=== PATIENT | female | born 1960 | race Two or more races ===

== ENCOUNTER 2017-07-11 23:19 | Inpatient (IN) | payer OTHER ==
[~2017-07-11] VITALS: Ht 172.7 cm; Wt 68.6 kg
[2017-07-12 03:27] LABS: Urine Bilirubin Negative (Negative); Urine Blood Negative /uL (Negative); Urine Color Yellow (Yellow); Urine Glucose Normal (Normal); Urine Ketone Negative (Negative); Urine Mucus FEW (None Seen); Urine Nitrite Negative (Negative); Urine RBC 2 /hpf (0 - 4); Urine Squamous Epithelial Cell FEW /hpf (<5); Urine Urobilinogen Normal (Negative); Urine pH 5.5 (5.0-8.0)
[2017-07-12 03:28] LABS: Basophils # (auto) 0.1 uL; Basophils % (auto) 0.9 % (0.0-2.0); Eosinophils # (auto) 0.1 uL; Eosinophils % (auto) 0.9 % (0.0-7.0); Hematocrit 29.5 % (36.0-46.0); Hemoglobin 9.7 g/dL (12.2-16.2); Lymphocytes # (auto) 1.2 uL; Lymphocytes % (auto) 15.3 % (10.0-50.0); Mean Corpuscular Hemoglobin 31.1 pg (28.0-32.0); Mean Corpuscular Volume 94.3 fL (80.0-100.0); Mean Platelet Volume 6.6 fL (6.9-10.8); Monocytes # (auto) 0.8 uL; Monocytes % (auto) 10.4 % (0.0-12.0); Neutrophils # (auto) 5.8 uL; Neutrophils % (auto) 72.5 % (37.0-80.0); Platelet Count (auto) 161 10^3/uL (140-450)
[2017-07-12 03:40] LABS: Albumin 2.4 g/dL (3.4-5.0); BUN/Creatinine Ratio 10.3; Bilirubin, Total 4.2 mg/dL (0.2-1.0); Calcium 8.2 mg/dL (8.5-10.1); Total Protein 8.4 g/dL (6.4-8.2)
[2017-07-12 04:34] LABS: INR 1.23 (0.9-1.15); Partial Thromboplastin Time 30.5 sec (22.64-33.71); Prothrombin Time 13.4 sec (9.37-12.3)
[2017-07-12 04:56] LABS: Anisocytosis Slight; Hypersegmented Neutrophils Present; Platelet Estimate Adequate
[2017-07-12] MEDS ORDERED: LORazepam 0.5 MG TAB PO PRN (05:45)
[2017-07-12] MEDS ORDERED: LACTULOSE 20Gm/30ML SOLN PO ONE (05:45)
[2017-07-12] MEDS ORDERED: cefTRIAXone 1GM/50ML D5W 50 ML IV ONE (06:30)
[2017-07-12] MEDS: SPIRONOLACTONE 25 MG TAB PO SCH ×2 (06:40→18:23)
[2017-07-12] MEDS: ONDANSETRON HCL 4 MG/2 ML VIAL IV PRN (08:05)
[2017-07-12 08:48] VITALS: BP 100/51
[2017-07-12] MEDS: POTASSIUM CHL 10 Meq TABLET PO SCH (08:50)
[2017-07-12] MEDS: ATENOLOL 25 MG TAB PO SCH (08:50)
[2017-07-12] MEDS: FUROSEMIDE 20 MG TAB PO SCH (08:51)
[2017-07-12 09:00] VITALS: BP 100/51
[2017-07-12] MEDS ORDERED: POTA10TA51 PO (09:14)
[2017-07-12] MEDS ORDERED: FURO20TA PO (09:14)
[2017-07-12] MEDS ORDERED: MULTCAP45 PO (09:14)
[2017-07-12] MEDS ORDERED: ATEN-60 PO (09:14)
[2017-07-12] MEDS ORDERED: ONDA4TAB5 PO (09:14)
[2017-07-12] MEDS ORDERED: SPIR25TA89 PO (09:16)
[2017-07-12 13:41] VITALS: BP 99/81
[2017-07-12] MEDS: metroNIDAZOLE 500MG/100ML 100 ML IV SCH ×2 (14:38→23:09)
[2017-07-12 17:00] VITALS: BP 100/55
[2017-07-12] MEDS: ACETAMINOPHEN 325 MG TAB PO PRN (18:23)
[2017-07-12 22:00] VITALS: BP 99/54
[2017-07-13 05:00] VITALS: BP 108/63
[2017-07-13] MEDS: metroNIDAZOLE 500MG/100ML 100 ML IV SCH ×3 (05:54→22:20)
[2017-07-13] MEDS: ACETAMINOPHEN 325 MG TAB PO PRN ×2 (05:54→15:50)
[2017-07-13] MEDS: SPIRONOLACTONE 25 MG TAB PO SCH ×2 (05:54→17:42)
[2017-07-13 07:15] LABS: Basophils # (auto) 0 uL; Eosinophils # (auto) 0 uL; Hemoglobin 8.2 g/dL (12.2-16.2); Lymphocytes # (auto) 0.9 uL; Mean Corpuscular Volume 95.4 fL (80.0-100.0); Monocytes # (auto) 0.8 uL; Nucleated Red Blood Cells % 0.1 %
[2017-07-13 07:17] LABS: Basophils % (auto) 0.2 % (0.0-2.0); Eosinophils % (auto) 0.6 % (0.0-7.0); Lymphocytes % (auto) 16.9 % (10.0-50.0); Mean Corpuscular Hemoglobin 32.5 pg (28.0-32.0); Mean Platelet Volume 6.3 fL (6.9-10.8); Monocytes % (auto) 13.9 % (0.0-12.0); Neutrophils # (auto) 3.8 uL; Neutrophils % (auto) 68.4 % (37.0-80.0); Platelet Count (auto) 120 10^3/uL (140-450); White Blood Cell 5.5 10^3/uL (4.4-10.8)
[2017-07-13 07:27] LABS: INR 1.25 (0.9-1.15); Prothrombin Time 13.7 sec (9.37-12.3)
[2017-07-13 07:41] LABS: Potassium 3.7 mmol/L (3.5-5.1)
[2017-07-13 07:48] LABS: Albumin 1.8 g/dL (3.4-5.0); BUN/Creatinine Ratio 11.1; Calcium 8.2 mg/dL (8.5-10.1)
[2017-07-13 07:50] LABS: Red Cell Distribution Width 20.5 % (11.8-14.3)
[2017-07-13 08:13] LABS: Bilirubin, Total 2.7 mg/dL (0.2-1.0); Total Protein 6.6 g/dL (6.4-8.2)
[2017-07-13] MEDS: LACTULOSE 20Gm/30ML SOLN PO SCH (08:27)
[2017-07-13] MEDS: cefTRIAXone 1GM/50ML D5W 50 ML IV SCH (08:27)
[2017-07-13] MEDS: ATENOLOL 25 MG TAB PO SCH (08:28)
[2017-07-13] MEDS: POTASSIUM CHL 10 Meq TABLET PO SCH (08:28)
[2017-07-13] MEDS: FUROSEMIDE 20 MG TAB PO SCH (08:28)
[2017-07-13 09:00] VITALS: BP 102/61
[2017-07-13 11:12] LABS: Platelet Estimate Decreased
[2017-07-13 11:13] LABS: Anisocytosis Slight; Ovalocytes FEW
[2017-07-13 13:00] VITALS: BP 100/60
[2017-07-13 17:00] VITALS: BP 96/56
[2017-07-14] MEDS: MORPHINE SULF INJ 2 MG/ML SYRINGE 1ML IV PRN ×2 (03:11→18:27)
[2017-07-14 04:54] VITALS: BP 113/60
[2017-07-14] MEDS: metroNIDAZOLE 500MG/100ML 100 ML IV SCH ×3 (05:31→22:03)
[2017-07-14 06:24] LABS: Albumin 1.8 g/dL (3.4-5.0); Calcium 8.2 mg/dL (8.5-10.1)
[2017-07-14 06:25] LABS: BUN/Creatinine Ratio 9.8
[2017-07-14 06:44] LABS: Bilirubin, Total 2.8 mg/dL (0.2-1.0); Total Protein 6.5 g/dL (6.4-8.2)
[2017-07-14 08:00] VITALS: BP 100/58
[2017-07-14 08:46] VITALS: BP 100/58
[2017-07-14] MEDS: cefTRIAXone 1GM/50ML D5W 50 ML IV SCH (10:39)
[2017-07-14] MEDS: POTASSIUM CHL 10 Meq TABLET PO SCH (10:40)
[2017-07-14] MEDS: ATENOLOL 25 MG TAB PO SCH (10:40)
[2017-07-14] MEDS: FUROSEMIDE 20 MG TAB PO SCH (10:41)
[2017-07-14] MEDS: LACTULOSE 20Gm/30ML SOLN PO SCH (10:42)
[2017-07-14] MEDS: SPIRONOLACTONE 25 MG TAB PO SCH (10:42)
[2017-07-14 13:19] VITALS: BP 96/59
[2017-07-14 17:14] VITALS: BP 92/51
[2017-07-14 22:00] VITALS: BP 95/56
[2017-07-14] MEDS: ACETAMINOPHEN 325 MG TAB PO PRN (22:25)
[2017-07-15] MEDS: ACETAMINOPHEN 325 MG TAB PO PRN ×3 (04:21→20:40)
[2017-07-15 05:00] VITALS: BP 104/60
[2017-07-15] MEDS: metroNIDAZOLE 500MG/100ML 100 ML IV SCH ×2 (06:12→14:18)
[2017-07-15 09:29] VITALS: BP 95/53
[2017-07-15] MEDS: LACTULOSE 20Gm/30ML SOLN PO SCH (09:52)
[2017-07-15] MEDS: cefTRIAXone 1GM/50ML D5W 50 ML IV SCH (09:52)
[2017-07-15] MEDS: FUROSEMIDE 20 MG TAB PO SCH (09:53)
[2017-07-15] MEDS: SPIRONOLACTONE 25 MG TAB PO SCH (09:53)
[2017-07-15] MEDS: POTASSIUM CHL 10 Meq TABLET PO SCH (09:53)
[2017-07-15] MEDS: ATENOLOL 25 MG TAB PO SCH (09:54)
[2017-07-15] MEDS: MORPHINE SULF INJ 2 MG/ML SYRINGE 1ML IV PRN (11:43)
[2017-07-15 12:15] VITALS: BP 108/67
[2017-07-15 17:07] VITALS: BP 88/47
[2017-07-15] MEDS: ONDANSETRON HCL 4 MG/2 ML VIAL IV PRN (20:40)
[2017-07-15 22:00] VITALS: BP_SYST 144; BP_SYST 92; BP_DIAS 53; BP_DIAS 74
[2017-07-15] MEDS ORDERED: ONDANSETRON HCL 4 MG/2 ML VIAL IV PRN (22:45)
[2017-07-16 05:00] VITALS: BP 97/54
[2017-07-16] MEDS: PROMETHAZINE HCL 25 MG/ML 1ML IV PRN (05:59)
[2017-07-16 08:54] VITALS: BP 98/58
[2017-07-16] MEDS: cefTRIAXone 1GM/50ML D5W 50 ML IV SCH (09:00)
[2017-07-16] MEDS: ATENOLOL 25 MG TAB PO SCH (10:00)
[2017-07-16] MEDS: POTASSIUM CHL 10 Meq TABLET PO SCH (10:24)
[2017-07-16] MEDS: FUROSEMIDE 20 MG TAB PO SCH (10:24)
[2017-07-16] MEDS: LACTULOSE 20Gm/30ML SOLN PO SCH (10:24)
[2017-07-16] MEDS: SPIRONOLACTONE 25 MG TAB PO SCH (10:25)
[2017-07-16 13:00] VITALS: BP 98/53
[2017-07-16 16:52] VITALS: BP 107/60
[2017-07-16] MEDS: ACETAMINOPHEN 325 MG TAB PO PRN (17:19)
[2017-07-16 22:00] VITALS: BP 110/64
[2017-07-17] MEDS: MORPHINE SULF INJ 2 MG/ML SYRINGE 1ML IV PRN ×2 (02:54→20:42)
[2017-07-17 05:00] VITALS: BP 115/66
[2017-07-17 06:15] LABS: Basophils # (auto) 0 uL; Basophils % (auto) 0.5 % (0.0-2.0); Monocytes # (auto) 0.5 uL; Monocytes % (auto) 8.1 % (0.0-12.0)
[2017-07-17 06:17] LABS: Eosinophils # (auto) 0 uL; Eosinophils % (auto) 0.6 % (0.0-7.0); Hematocrit 23.8 % (36.0-46.0); Hemoglobin 8.1 g/dL (12.2-16.2); Lymphocytes # (auto) 0.9 uL; Lymphocytes % (auto) 13.6 % (10.0-50.0); Mean Corpuscular Hemoglobin 32.8 pg (28.0-32.0); Mean Corpuscular Hgb Conc. 34.1 g/dL (32.0-36.0); Mean Platelet Volume 6.2 fL (6.9-10.8); Neutrophils # (auto) 5.1 uL; Neutrophils % (auto) 77.2 % (37.0-80.0); Nucleated Red Blood Cells % 0.1 %; Platelet Count (auto) 134 10^3/uL (140-450); White Blood Cell 6.7 10^3/uL (4.4-10.8)
[2017-07-17 06:29] LABS: Red Cell Distribution Width 21.2 % (11.8-14.3)
[2017-07-17 06:30] LABS: BUN/Creatinine Ratio 7.3; Calcium 7.7 mg/dL (8.5-10.1)
[2017-07-17 06:59] LABS: Anisocytosis Slight; Ovalocytes FEW; Platelet Estimate Decreased
[2017-07-17] MEDS: ACETAMINOPHEN 325 MG TAB PO PRN ×2 (07:04→20:32)
[2017-07-17 08:00] VITALS: BP 102/56
[2017-07-17] MEDS: cefTRIAXone 1GM/50ML D5W 50 ML IV SCH (08:56)
[2017-07-17 09:32] VITALS: BP_SYST 102; BP_SYST 141; BP_DIAS 56; BP_DIAS 68
[2017-07-17] MEDS: ATENOLOL 25 MG TAB PO SCH (10:00)
[2017-07-17] MEDS: LACTULOSE 20Gm/30ML SOLN PO SCH (10:10)
[2017-07-17] MEDS: SPIRONOLACTONE 25 MG TAB PO SCH (10:10)
[2017-07-17] MEDS: POTASSIUM CHL 10 Meq TABLET PO SCH (10:11)
[2017-07-17] MEDS: FUROSEMIDE 20 MG TAB PO SCH (10:11)
[2017-07-17 12:00] VITALS: BP 116/67
[2017-07-17] MEDS ORDERED: METOPROLOL TARTRATE 25 MG TAB PO ONE (12:30)
[2017-07-17 17:00] VITALS: BP 98/53
[2017-07-17] MEDS ORDERED: LEVOFLOXACIN 500 MG TAB PO ONE (17:15)
[2017-07-17] MEDS ORDERED: FLUCONAZOLE 100 MG TAB PO ONE (17:15)
[2017-07-17 22:00] VITALS: BP 99/54
[2017-07-17] MEDS: METOPROLOL TARTRATE 25 MG TAB PO SCH (22:12)
[2017-07-18] MEDS: ACETAMINOPHEN 325 MG TAB PO PRN (00:12)
[2017-07-18 05:00] VITALS: BP 88/52
[2017-07-18] MEDS: LACTULOSE 20Gm/30ML SOLN PO SCH (09:19)
[2017-07-18] MEDS: SPIRONOLACTONE 25 MG TAB PO SCH (09:19)
[2017-07-18] MEDS: POTASSIUM CHL 10 Meq TABLET PO SCH (09:20)
[2017-07-18] MEDS: METOPROLOL TARTRATE 25 MG TAB PO SCH (09:23)
[2017-07-18] MEDS: FUROSEMIDE 20 MG TAB PO SCH (09:23)
[2017-07-18 09:52] VITALS: BP 83/48
[2017-07-18] MEDS ORDERED: LEVOFLOXACIN 500 MG TAB PO SCH (10:00)
[2017-07-18] MEDS ORDERED: FLUCONAZOLE 100 MG TAB PO SCH (10:00)
[2017-07-18] MEDS: PROMETHAZINE HCL 25 MG/ML 1ML IV PRN (10:24)
[2017-07-18 12:00] VITALS: BP 93/47
[2017-07-18 13:50] VITALS: BP 96/54
== END 2017-07-18 17:00 | disposition left against medical advice (07) | DRG 280 ==
LOC: ER 23:22 → OVERFLOW 23:23 → EAST 07-12 08:17
PROVIDERS: ADMIT Nurse Practitioner Family; ATTEND Internal Medicine
PROC: 0W9G3ZZ Drainage of Peritoneal Cavity, Percutaneous Approach (ICD-10-PCS; principal; 2017-07-17)
DX: K70.31 Alcoholic cirrhosis of liver with ascites (principal); E43 Unspecified severe protein-calorie malnutrition; K72.90 Hepatic failure, unspecified without coma; J90 Pleural effusion, not elsewhere classified; K76.6 Portal hypertension; R16.1 Splenomegaly, not elsewhere classified; B19.20 Unspecified viral hepatitis C without hepatic coma; N39.0 Urinary tract infection, site not specified; K40.90 Unilateral inguinal hernia, without obstruction or gangrene, not specified as recurrent; K57.30 Diverticulosis of large intestine without perforation or abscess without bleeding; I10 Essential (primary) hypertension; Z53.21 Procedure and treatment not carried out due to patient leaving prior to being seen by health care provider; J98.11 Atelectasis; Z82.3 Family history of stroke; Z90.49 Acquired absence of other specified parts of digestive tract; Z72.89 Other problems related to lifestyle; Z68.23 Body mass index [BMI] 23.0-23.9, adult; Z88.6 Allergy status to analgesic agent; Z88.5 Allergy status to narcotic agent; Z90.710 Acquired absence of both cervix and uterus; Z79.899 Other long term (current) drug therapy
CPT/HCPCS: 10030; 36415; 71010; 74176; 76700; 76942; 80048; 80053; 81001; 82105; 82140; 83735; 85025; 85610; 85730; 87081; 87086; 87088; 87186; 93005; 96374; 96375; J0696; J2405; J3490

== ENCOUNTER 2017-08-24 13:43 | Inpatient (IN) | payer OTHER ==
[~2017-08-24] VITALS: Ht 170.2 cm; Wt 85.0 kg
[~2017-08-24 13:43] MED LIST: ATEN-60 PO; FURO20TA PO; MULTCAP45 PO; ONDA4TAB5 PO; POTA10TA51 PO; SPIR25TA89 PO
[2017-08-24 14:36] LABS: Basophils # (auto) 0 uL; Basophils % (auto) 0.3 % (0.0-2.0); Eosinophils # (auto) 0 uL; Eosinophils % (auto) 0.3 % (0.0-7.0); Hematocrit 28.3 % (36.0-46.0); Hemoglobin 9.4 g/dL (12.2-16.2); Lymphocytes # (auto) 0.3 uL; Lymphocytes % (auto) 5.8 % (10.0-50.0); Mean Corpuscular Hemoglobin 31.6 pg (28.0-32.0); Mean Corpuscular Hgb Conc. 33.3 g/dL (32.0-36.0); Monocytes # (auto) 0.4 uL; Monocytes % (auto) 7.3 % (0.0-12.0); Neutrophils # (auto) 5.2 uL; Neutrophils % (auto) 86.3 % (37.0-80.0); Nucleated Red Blood Cells % 0.1 %; Platelet Count (auto) 180 10^3/uL (140-450); Red Blood Cells 2.97 10^6/uL (4.0-5.20)
[2017-08-24] MEDS ORDERED: ONDANSETRON HCL 4 MG/2 ML VIAL IV ONE (14:45)
[2017-08-24 15:11] LABS: Albumin 2.5 g/dL (3.4-5.0); BUN/Creatinine Ratio 11.6; Bilirubin, Total 4.6 mg/dL (0.2-1.0); Potassium 3.1 mmol/L (3.5-5.1); Total Protein 8.1 g/dL (6.4-8.2)
[2017-08-24 15:16] LABS: INR 1.47 (0.9-1.15); Prothrombin Time 16.1 sec (9.37-12.3)
[2017-08-24] MEDS ORDERED: LACTULOSE 20Gm/30ML SOLN PO ONE (17:30)
[2017-08-24] MEDS ORDERED: NITROGLYCERIN 0.4 MG SL TAB SL PRN (18:15)
[2017-08-24] MEDS ORDERED: cefTRIAXone 1GM/10ml IVPUSH 10 ML IV ONE (18:15)
[2017-08-24] MEDS ORDERED: MORPHINE SULFATE 4 MG/ML SYR/VIAL IV PRN (18:15)
[2017-08-24] MEDS ORDERED: TEMAZEPAM 15 MG CAP PO PRN (18:15)
[2017-08-24] MEDS ORDERED: MORPHINE SULFATE 10 MG/ML INJ 1ML SDV IV PRN (18:15)
[2017-08-24] MEDS ORDERED: metroNIDAZOLE 500MG/100ML 100 ML IV ONE (18:30)
[2017-08-24] MEDS: FAMOTIDINE (10MG/ML) 2ML VL IV SCH (19:01)
[2017-08-24] MEDS: MORPHINE SULF INJ 2 MG/ML SYRINGE 1ML IV PRN (19:01)
[2017-08-24] MEDS: LACTULOSE 20Gm/30ML SOLN PO SCH (22:48)
[2017-08-25] MEDS: LACTULOSE 20Gm/30ML SOLN PO SCH ×6 (02:00→21:39)
[2017-08-25 05:00] VITALS: BP 122/71
[2017-08-25] MEDS: metroNIDAZOLE 500MG/100ML 100 ML IV SCH ×5 (06:00→23:08)
[2017-08-25] MEDS: FAMOTIDINE (10MG/ML) 2ML VL IV SCH ×2 (06:08→17:37)
[2017-08-25 08:02] LABS: Basophils # (auto) 0 uL; Basophils % (auto) 0.5 % (0.0-2.0); Eosinophils # (auto) 0 uL; Hematocrit 26.5 % (36.0-46.0); Hemoglobin 9.2 g/dL (12.2-16.2); Lymphocytes # (auto) 0.9 uL; Lymphocytes % (auto) 17.8 % (10.0-50.0); Mean Corpuscular Hemoglobin 32.8 pg (28.0-32.0); Mean Corpuscular Hgb Conc. 34.9 g/dL (32.0-36.0); Mean Corpuscular Volume 94.1 fL (80.0-100.0); Monocytes # (auto) 0.5 uL; Monocytes % (auto) 11.1 % (0.0-12.0); Neutrophils # (auto) 3.4 uL; Neutrophils % (auto) 69.6 % (37.0-80.0); Nucleated Red Blood Cells % 0.1 %; Platelet Count (auto) 162 10^3/uL (140-450); Red Blood Cells 2.82 10^6/uL (4.0-5.20); Red Cell Distribution Width 18.8 % (11.8-14.3); White Blood Cell 4.9 10^3/uL (4.4-10.8)
[2017-08-25 08:23] LABS: Albumin 2.3 g/dL (3.4-5.0); BUN/Creatinine Ratio 11.7; Bilirubin, Total 4.1 mg/dL (0.2-1.0); Calcium 7.7 mg/dL (8.5-10.1); Total Protein 7.6 g/dL (6.4-8.2)
[2017-08-25 08:35] LABS: Potassium 2.8 mmol/L (3.5-5.1)
[2017-08-25 09:00] VITALS: BP 116/70
[2017-08-25] MEDS ORDERED: POTASSIUM CHL 20 Meq TABLET PO ONE (10:00)
[2017-08-25] MEDS: cefTRIAXone 1GM/10ml IVPUSH 10 ML IV SCH (10:15)
[2017-08-25] MEDS: PANTOPRAZOLE 40 MG TAB PO SCH (10:16)
[2017-08-25 12:42] VITALS: BP 121/67
[2017-08-25 17:23] VITALS: BP 108/62
[2017-08-25] MEDS: PROMETHAZINE HCL 25 MG/ML 1ML IV PRN ×2 (17:57→22:59)
[2017-08-25 22:00] VITALS: BP 114/65
[2017-08-25] MEDS: MORPHINE SULF INJ 2 MG/ML SYRINGE 1ML IV PRN (22:58)
[2017-08-26] MEDS: LACTULOSE 20Gm/30ML SOLN PO SCH ×6 (02:53→21:56)
[2017-08-26] MEDS: PROMETHAZINE HCL 25 MG/ML 1ML IV PRN ×3 (03:12→13:49)
[2017-08-26 05:00] VITALS: BP 130/71
[2017-08-26] MEDS: metroNIDAZOLE 500MG/100ML 100 ML IV SCH ×3 (06:48→19:28)
[2017-08-26] MEDS: FAMOTIDINE (10MG/ML) 2ML VL IV SCH ×2 (06:48→19:29)
[2017-08-26] MEDS: cefTRIAXone 1GM/10ml IVPUSH 10 ML IV SCH (08:33)
[2017-08-26 09:00] VITALS: BP 114/62
[2017-08-26] MEDS: PANTOPRAZOLE 40 MG TAB PO SCH (11:20)
[2017-08-26 13:00] VITALS: BP 128/68
[2017-08-26 16:59] VITALS: BP 130/75
[2017-08-26] MEDS ORDERED: ADENOSINE 6 MG/2 ML INJ IV ONE (18:30)
[2017-08-26 19:07] LABS: Basophils # (auto) 0 uL; Basophils % (auto) 0.5 % (0.0-2.0); Eosinophils # (auto) 0 uL; Eosinophils % (auto) 0.5 % (0.0-7.0); Hematocrit 26.6 % (36.0-46.0); Lymphocytes # (auto) 0.4 uL; Lymphocytes % (auto) 10.6 % (10.0-50.0); Mean Corpuscular Hemoglobin 31.8 pg (28.0-32.0); Mean Corpuscular Hgb Conc. 33.9 g/dL (32.0-36.0); Mean Corpuscular Volume 93.7 fL (80.0-100.0); Monocytes # (auto) 0.4 uL; Monocytes % (auto) 10.5 % (0.0-12.0); Neutrophils # (auto) 3.3 uL; Neutrophils % (auto) 77.9 % (37.0-80.0); Nucleated Red Blood Cells % 0.2 %; Platelet Count (auto) 127 10^3/uL (140-450); Red Blood Cells 2.84 10^6/uL (4.0-5.20); Red Cell Distribution Width 18.9 % (11.8-14.3); White Blood Cell 4.2 10^3/uL (4.4-10.8)
[2017-08-26 19:18] LABS: Albumin 2.1 g/dL (3.4-5.0); Bilirubin, Total 4.1 mg/dL (0.2-1.0); Calcium 7.4 mg/dL (8.5-10.1); Magnesium 2.2 mg/dL (1.6-2.6); Potassium 3.3 mmol/L (3.5-5.1); Total Protein 7.1 g/dL (6.4-8.2)
[2017-08-26 22:00] VITALS: BP 117/83
[2017-08-26] MEDS ORDERED: DILTIAZEM HCL 25 MG/5 ML VIAL IV ONE (23:30)
[2017-08-26] MEDS ORDERED: POTASSIUM CHL 20MEQ/50ML 50 ML IV SCH (23:30)
[2017-08-27] VITALS (8 sets, daily range): BP systolic 89–121; BP diastolic 54–79
[2017-08-27] MEDS: LACTULOSE 20Gm/30ML SOLN PO SCH ×6 (02:00→21:53)
[2017-08-27] MEDS: LORazepam 0.5 MG TAB PO PRN ×2 (03:31→03:46)
[2017-08-27] MEDS: metroNIDAZOLE 500MG/100ML 100 ML IV SCH ×5 (06:00→23:45)
[2017-08-27] MEDS: FAMOTIDINE (10MG/ML) 2ML VL IV SCH ×2 (06:15→17:25)
[2017-08-27] MEDS: cefTRIAXone 1GM/10ml IVPUSH 10 ML IV SCH (09:31)
[2017-08-27 09:37] LABS: Basophils # (auto) 0 uL; Basophils % (auto) 0.7 % (0.0-2.0); Eosinophils # (auto) 0.1 uL; Hematocrit 26.4 % (36.0-46.0); Hemoglobin 8.9 g/dL (12.2-16.2); Lymphocytes # (auto) 0.5 uL; Lymphocytes % (auto) 15.6 % (10.0-50.0); Mean Corpuscular Hemoglobin 31.6 pg (28.0-32.0); Mean Corpuscular Hgb Conc. 33.9 g/dL (32.0-36.0); Mean Corpuscular Volume 93.1 fL (80.0-100.0); Monocytes # (auto) 0.5 uL; Monocytes % (auto) 14.4 % (0.0-12.0); Neutrophils # (auto) 2.3 uL; Neutrophils % (auto) 67.3 % (37.0-80.0); Nucleated Red Blood Cells % 0.1 %; Platelet Count (auto) 126 10^3/uL (140-450); Red Blood Cells 2.83 10^6/uL (4.0-5.20); Red Cell Distribution Width 19.1 % (11.8-14.3); White Blood Cell 3.5 10^3/uL (4.4-10.8)
[2017-08-27] MEDS: PANTOPRAZOLE 40 MG TAB PO SCH (09:37)
[2017-08-27 09:48] LABS: Calcium 7.4 mg/dL (8.5-10.1); Potassium 3.1 mmol/L (3.5-5.1)
[2017-08-27] MEDS ORDERED: POTASSIUM CHL 20 Meq TABLET PO ONE (13:15)
[2017-08-27] MEDS ORDERED: DILTIAZEM HCL 120MG ER CAP PO ONE (14:00)
[2017-08-27] MEDS: PROMETHAZINE HCL 25 MG/ML 1ML IV PRN (17:25)
[2017-08-27 18:53] LABS: BUN/Creatinine Ratio 11.5; Calcium 7.2 mg/dL (8.5-10.1); Magnesium 2.2 mg/dL (1.6-2.6); Potassium 3.6 mmol/L (3.5-5.1)
[2017-08-28 00:16] VITALS: BP 98/53
[2017-08-28] MEDS: LACTULOSE 20Gm/30ML SOLN PO SCH ×6 (02:00→22:00)
[2017-08-28 04:14] VITALS: BP 93/54
[2017-08-28] MEDS: FAMOTIDINE (10MG/ML) 2ML VL IV SCH ×2 (05:40→17:48)
[2017-08-28] MEDS: metroNIDAZOLE 500MG/100ML 100 ML IV SCH ×2 (05:40→11:16)
[2017-08-28] MEDS: cefTRIAXone 1GM/10ml IVPUSH 10 ML IV SCH (08:50)
[2017-08-28] MEDS: DILTIAZEM HCL 120MG ER CAP PO SCH (10:12)
[2017-08-28] MEDS: PANTOPRAZOLE 40 MG TAB PO SCH (10:12)
[2017-08-28 12:11] VITALS: BP 104/64
[2017-08-28 15:45] VITALS: BP 115/71
[2017-08-28 20:03] VITALS: BP 116/66
[2017-08-29] VITALS (32 sets, daily range): BP systolic 97–121; BP diastolic 41–73
[2017-08-29] MEDS: LACTULOSE 20Gm/30ML SOLN PO SCH ×6 (02:00→22:00)
[2017-08-29 06:08] LABS: Basophils # (auto) 0.1 uL; Eosinophils # (auto) 0 uL; Hematocrit 24.6 % (36.0-46.0); Hemoglobin 8.4 g/dL (12.2-16.2); Lymphocytes # (auto) 0.9 uL; Mean Corpuscular Hgb Conc. 34.1 g/dL (32.0-36.0); Neutrophils # (auto) 7.7 uL
[2017-08-29 06:10] LABS: Basophils % (auto) 0.6 % (0.0-2.0); Eosinophils % (auto) 0.5 % (0.0-7.0); Lymphocytes % (auto) 9.7 % (10.0-50.0); Mean Corpuscular Hemoglobin 32.5 pg (28.0-32.0); Mean Corpuscular Volume 95.4 fL (80.0-100.0); Monocytes # (auto) 0.9 uL; Monocytes % (auto) 8.9 % (0.0-12.0); Neutrophils % (auto) 80.3 % (37.0-80.0); Nucleated Red Blood Cells % 0.1 %; Platelet Count (auto) 188 10^3/uL (140-450); Red Blood Cells 2.58 10^6/uL (4.0-5.20); Red Cell Distribution Width 19.6 % (11.8-14.3); White Blood Cell 9.5 10^3/uL (4.4-10.8)
[2017-08-29] MEDS: FAMOTIDINE (10MG/ML) 2ML VL IV SCH (06:15)
[2017-08-29] MEDS ORDERED: PANTOPRAZOLE 80 MG in SODIUM CHL 0.9% 60 ML IV SCH (06:30)
[2017-08-29 06:34] LABS: BUN/Creatinine Ratio 13.2; Calcium 7.3 mg/dL (8.5-10.1); Potassium 3.4 mmol/L (3.5-5.1)
[2017-08-29 06:35] LABS: Albumin 1.9 g/dL (3.4-5.0); Total Protein 6.5 g/dL (6.4-8.2)
[2017-08-29] MEDS ORDERED: SODIUM CHLORIDE 0.9% 500 ML IV ONE (07:00)
[2017-08-29 07:45] LABS: INR 1.65 (0.9-1.15); Partial Thromboplastin Time 39.7 sec (22.64-33.71); Prothrombin Time 18.1 sec (9.37-12.3)
[2017-08-29] MEDS ORDERED: MORPHINE SULF INJ 2 MG/ML SYRINGE 1ML IV PRN (07:45)
[2017-08-29] MEDS: PANTOPRAZOLE 40 MG TAB PO SCH (10:00)
[2017-08-29] MEDS: cefTRIAXone 1GM/10ml IVPUSH 10 ML IV SCH (10:18)
[2017-08-29] MEDS: DILTIAZEM HCL 120MG ER CAP PO SCH (10:19)
[2017-08-29] MEDS ORDERED: PHYTONADIONE (VIT K)10 MG/ML 1ML VIAL SUBCUT ONE (11:00)
[2017-08-29] MEDS ORDERED: OCTREOTIDE ACETATE 100 MCG in SODIUM CHL 0.9% 50 ML IV ONE (11:00)
[2017-08-29] MEDS ORDERED: MORPHINE SULF 15mg ER tab PO ONE (12:25)
[2017-08-29] MEDS ORDERED: FUROSEMIDE 40 MG/4 ML VIAL ONE (12:25)
[2017-08-29] MEDS: OCTREOTIDE ACETATE 500 MCG in SODIUM CHL 0.9% 99 ML IV SCH ×2 (12:36→21:30)
[2017-08-29] MEDS ORDERED: POTASSIUM CHL 20 Meq TABLET PO ONE (21:15)
[2017-08-29] MEDS: PANTOPRAZOLE 40 MG/10 ML VIAL IV SCH (22:25)
[2017-08-30] VITALS (49 sets, daily range): BP systolic 85–126; BP diastolic 39–75
[2017-08-30] MEDS: LACTULOSE 20Gm/30ML SOLN PO SCH ×6 (02:00→22:00)
[2017-08-30 04:23] LABS: Eosinophils # (auto) 0.1 uL; Monocytes # (auto) 0.5 uL; Red Blood Cells 2.08 10^6/uL (4.0-5.20); White Blood Cell 4.4 10^3/uL (4.4-10.8)
[2017-08-30 04:27] LABS: Basophils # (auto) 0 uL; Basophils % (auto) 0.7 % (0.0-2.0); Eosinophils % (auto) 3.2 % (0.0-7.0); Hematocrit 19.1 % (36.0-46.0); Lymphocytes # (auto) 1.1 uL; Lymphocytes % (auto) 25.2 % (10.0-50.0); Mean Corpuscular Hemoglobin 31.7 pg (28.0-32.0); Mean Corpuscular Hgb Conc. 34.5 g/dL (32.0-36.0); Mean Corpuscular Volume 91.7 fL (80.0-100.0); Monocytes % (auto) 11.4 % (0.0-12.0); Neutrophils # (auto) 2.6 uL; Neutrophils % (auto) 59.5 % (37.0-80.0); Nucleated Red Blood Cells % 0.2 %; Platelet Count (auto) 105 10^3/uL (140-450); Red Cell Distribution Width 18.8 % (11.8-14.3)
[2017-08-30 04:37] LABS: Albumin 1.7 g/dL (3.4-5.0); BUN/Creatinine Ratio 12.2; Calcium 7.4 mg/dL (8.5-10.1); Potassium 3.7 mmol/L (3.5-5.1)
[2017-08-30 04:39] LABS: Bilirubin, Total 3.2 mg/dL (0.2-1.0); Total Protein 5.6 g/dL (6.4-8.2)
[2017-08-30 04:45] LABS: Hemoglobin 6.6 g/dL (12.2-16.2)
[2017-08-30 06:21] LABS: Basophils # (auto) 0 uL; Eosinophils # (auto) 0.2 uL; Eosinophils % (auto) 3.6 % (0.0-7.0); Hemoglobin 7.7 g/dL (12.2-16.2)
[2017-08-30 06:24] LABS: Basophils % (auto) 0.7 % (0.0-2.0); Hematocrit 22.7 % (36.0-46.0); Lymphocytes # (auto) 1.4 uL; Lymphocytes % (auto) 23.8 % (10.0-50.0); Mean Corpuscular Hemoglobin 31.8 pg (28.0-32.0); Mean Corpuscular Volume 93.5 fL (80.0-100.0); Monocytes # (auto) 0.7 uL; Monocytes % (auto) 11.3 % (0.0-12.0); Neutrophils # (auto) 3.6 uL; Neutrophils % (auto) 60.6 % (37.0-80.0); Nucleated Red Blood Cells % 0.1 %; Platelet Count (auto) 131 10^3/uL (140-450); Red Blood Cells 2.43 10^6/uL (4.0-5.20); Red Cell Distribution Width 19.7 % (11.8-14.3)
[2017-08-30] MEDS: OCTREOTIDE ACETATE 500 MCG in SODIUM CHL 0.9% 99 ML IV SCH ×2 (07:05→18:00)
[2017-08-30] MEDS: cefTRIAXone 1GM/10ml IVPUSH 10 ML IV SCH (09:29)
[2017-08-30] MEDS: PANTOPRAZOLE 40 MG/10 ML VIAL IV SCH ×2 (09:29→22:01)
[2017-08-30] MEDS: DILTIAZEM HCL 120MG ER CAP PO SCH (10:00)
[2017-08-30] MEDS ORDERED: GOLYTELY 4L KIT PO ONE (12:00)
[2017-08-30 14:35] LABS: INR 1.53 (0.9-1.15); Prothrombin Time 16.7 sec (9.37-12.3)
[2017-08-30 18:15] LABS: Protein, Urine 61.5 mg/dL (0.0-11.9)
[2017-08-30 18:31] LABS: Urine Bacteria NONE SEEN /hpf (None Seen); Urine Blood Negative /uL (Negative); Urine Mucus FEW (None Seen); Urine Specific Gravity 1.036 (1.001-1.035); Urine WBC 4 /hpf (0 - 5)
[2017-08-30] MEDS: MORPHINE SULF INJ 2 MG/ML SYRINGE 1ML IV PRN (23:25)
[2017-08-31] VITALS (39 sets, daily range): BP systolic 98–130; BP diastolic 56–80
[2017-08-31] MEDS: LACTULOSE 20Gm/30ML SOLN PO SCH ×6 (02:00→21:38)
[2017-08-31] MEDS: PROMETHAZINE HCL 25 MG/ML 1ML IV PRN (03:00)
[2017-08-31] MEDS: OCTREOTIDE ACETATE 500 MCG in SODIUM CHL 0.9% 99 ML IV SCH (03:15)
[2017-08-31 03:47] LABS: Basophils # (auto) 0.1 uL; Basophils % (auto) 0.7 % (0.0-2.0); Eosinophils # (auto) 0.2 uL; Eosinophils % (auto) 2.8 % (0.0-7.0); Hematocrit 27.4 % (36.0-46.0); Hemoglobin 9.4 g/dL (12.2-16.2); Lymphocytes # (auto) 1.7 uL; Lymphocytes % (auto) 22.2 % (10.0-50.0); Mean Corpuscular Hemoglobin 31.6 pg (28.0-32.0); Mean Corpuscular Hgb Conc. 34.5 g/dL (32.0-36.0); Mean Corpuscular Volume 91.5 fL (80.0-100.0); Monocytes # (auto) 0.8 uL; Neutrophils % (auto) 64.3 % (37.0-80.0); Platelet Count (auto) 146 10^3/uL (140-450); Red Blood Cells 2.99 10^6/uL (4.0-5.20); Red Cell Distribution Width 18.7 % (11.8-14.3); White Blood Cell 7.8 10^3/uL (4.4-10.8)
[2017-08-31 03:59] LABS: INR 1.52 (0.9-1.15); Prothrombin Time 16.6 sec (9.37-12.3)
[2017-08-31 04:03] LABS: Albumin 1.8 g/dL (3.4-5.0); BUN/Creatinine Ratio 10.2; Bilirubin, Total 3.8 mg/dL (0.2-1.0); Phosphorus 2.2 mg/dL (2.5-4.90); Total Protein 5.9 g/dL (6.4-8.2); Uric Acid 3.7 mg/dL (2.6-6.0)
[2017-08-31] MEDS ORDERED: diphenhdrAMINE HCL 50 MG/1 ML VL ONE (08:11)
[2017-08-31] MEDS ORDERED: SODIUM CHLORIDE LOCK 10 ML ONE (08:11)
[2017-08-31] MEDS ORDERED: LIDOCAINE VISCOUS 2% 15ML UD ONE (08:11)
[2017-08-31] MEDS: cefTRIAXone 1GM/10ml IVPUSH 10 ML IV SCH (09:00)
[2017-08-31] MEDS: PANTOPRAZOLE 40 MG/10 ML VIAL IV SCH (10:29)
[2017-08-31] MEDS: DILTIAZEM HCL 120MG ER CAP PO SCH (10:29)
[2017-08-31] MEDS: fentaNYL CITRATE 100 MCG/2 ML VL ONE ×2 (12:20→12:31)
[2017-08-31] MEDS: MIDAZOLAM HCL 5 MG/ML-1ML VIAL ONE ×2 (12:20→12:29)
[2017-08-31] MEDS: ONDANSETRON HCL 4 MG/2 ML VIAL ONE ×2 (13:02→13:07)
[2017-08-31] MEDS ORDERED: ONDANSETRON HCL 4 MG/2 ML VIAL IM ONE (13:15)
[2017-08-31] MEDS ORDERED: MORPHINE SULFATE 10 MG/ML INJ 1ML SDV IV PRN (15:30)
[2017-09-01] MEDS: LACTULOSE 20Gm/30ML SOLN PO SCH ×6 (02:00→22:34)
[2017-09-01 04:00] VITALS: BP 112/63
[2017-09-01] MEDS: cefTRIAXone 1GM/10ml IVPUSH 10 ML IV SCH (09:03)
[2017-09-01] MEDS: DILTIAZEM HCL 120MG ER CAP PO SCH (09:30)
[2017-09-01] MEDS: PANTOPRAZOLE 40 MG TAB PO SCH (09:30)
[2017-09-01 10:09] LABS: Basophils # (auto) 0 uL; Basophils % (auto) 0.5 % (0.0-2.0); Eosinophils # (auto) 0.2 uL; Hematocrit 26.8 % (36.0-46.0); Hemoglobin 9.3 g/dL (12.2-16.2); Lymphocytes % (auto) 24.9 % (10.0-50.0); Mean Corpuscular Hemoglobin 31.8 pg (28.0-32.0); Mean Corpuscular Hgb Conc. 34.7 g/dL (32.0-36.0); Mean Corpuscular Volume 91.5 fL (80.0-100.0); Monocytes # (auto) 0.8 uL; Monocytes % (auto) 10.1 % (0.0-12.0); Neutrophils % (auto) 61.5 % (37.0-80.0); Nucleated Red Blood Cells % 0.1 %; Platelet Count (auto) 160 10^3/uL (140-450); Red Blood Cells 2.92 10^6/uL (4.0-5.20); Red Cell Distribution Width 18.4 % (11.8-14.3); White Blood Cell 8.1 10^3/uL (4.4-10.8)
[2017-09-01 10:22] LABS: BUN/Creatinine Ratio 13.5; Calcium 7.2 mg/dL (8.5-10.1); Potassium 3.6 mmol/L (3.5-5.1)
[2017-09-01 11:50] VITALS: BP 104/63
[2017-09-01] MEDS: BOOST PLUS 8 ounce PO SCH ×2 (12:00→17:59)
[2017-09-01 16:48] VITALS: BP 120/74
[2017-09-01 20:00] VITALS: BP 113/65
[2017-09-01] MEDS ORDERED: MORPHINE SULF INJ 2 MG/ML SYRINGE 1ML ONE (23:52)
[2017-09-02] VITALS: BP 105/62
[2017-09-02] MEDS: LACTULOSE 20Gm/30ML SOLN PO SCH ×3 (02:00→09:58)
[2017-09-02 04:00] VITALS: BP 117/70
[2017-09-02 08:00] VITALS: BP 110/60
[2017-09-02] MEDS: BOOST PLUS 8 ounce PO SCH (08:00)
[2017-09-02] MEDS: cefTRIAXone 1GM/10ml IVPUSH 10 ML IV SCH (08:55)
[2017-09-02] MEDS: DILTIAZEM HCL 120MG ER CAP PO SCH (09:58)
[2017-09-02] MEDS: PANTOPRAZOLE 40 MG TAB PO SCH (09:58)
[2017-09-02 11:17] VITALS: BP 112/66
[2017-09-02 12:00] VITALS: BP 108/66
== END 2017-09-02 15:23 | disposition home or self-care (01) | DRG 280 ==
LOC: ER 13:43 → TELE-WESTW 13:44 → DOU IN ICU 08-26 21:42 → TELE-WESTW 08-29 00:10 → ICU WEST 08-29 08:30 → DOU IN ICU 08-31 22:14
PROVIDERS: ADMIT Internal Medicine; ATTEND Internal Medicine
PROC: 0W9G3ZZ Drainage of Peritoneal Cavity, Percutaneous Approach (ICD-10-PCS; principal; 2017-08-24)
PROC: 30233N1 Transfusion of Nonautologous Red Blood Cells into Peripheral Vein, Percutaneous Approach (ICD-10-PCS; 2017-08-29)
PROC: 30233L1 Transfusion of Nonautologous Fresh Plasma into Peripheral Vein, Percutaneous Approach (ICD-10-PCS; 2017-08-29)
PROC: 30233K1 Transfusion of Nonautologous Frozen Plasma into Peripheral Vein, Percutaneous Approach (ICD-10-PCS; 2017-08-29)
PROC: 0DJD8ZZ Inspection of Lower Intestinal Tract, Via Natural or Artificial Opening Endoscopic (ICD-10-PCS; 2017-08-31)
PROC: 0DJ08ZZ Inspection of Upper Intestinal Tract, Via Natural or Artificial Opening Endoscopic (ICD-10-PCS; 2017-08-31 12:19)
DX: K70.31 Alcoholic cirrhosis of liver with ascites (principal); E43 Unspecified severe protein-calorie malnutrition; K72.90 Hepatic failure, unspecified without coma; K92.0 Hematemesis; K76.6 Portal hypertension; E87.1 Hypo-osmolality and hyponatremia; I47.1 Supraventricular tachycardia; K57.90 Diverticulosis of intestine, part unspecified, without perforation or abscess without bleeding; E87.6 Hypokalemia; I12.9 Hypertensive chronic kidney disease with stage 1 through stage 4 chronic kidney disease, or unspecified chronic kidney disease; N18.2 Chronic kidney disease, stage 2 (mild); K29.50 Unspecified chronic gastritis without bleeding; K31.89 Other diseases of stomach and duodenum; K20.9 Esophagitis, unspecified; K64.8 Other hemorrhoids; Z90.49 Acquired absence of other specified parts of digestive tract; Z82.3 Family history of stroke; Z90.710 Acquired absence of both cervix and uterus; Z88.8 Allergy status to other drugs, medicaments and biological substances; Z88.6 Allergy status to analgesic agent; Z68.29 Body mass index [BMI] 29.0-29.9, adult
CPT/HCPCS: 10030; 36415; 43235; 45378; 49082; 71045; 74021; 76775; 76942; 80048; 80053; 81001; 82140; 82570; 83735; 84100; 84156; 84300; 84484; 84550; 85025; 85379; 85610; 85730; 86850; 86900; 86901; 86920; 87040; 87081; 87086; 93005; 93306; 96365; 96375; C9113; J0153; J2250; J2405; J3490